=== PATIENT | female | born 1970 | race African-American/Black ===

== ENCOUNTER 2021-02-22 11:57 | Emergency (ER) | payer OTHER ==
[2021-02-22] MEDS ORDERED: PREDNISONE20 M1 PO (13:07)
[2021-02-22] MEDS ORDERED: CYCLOBENZAPRINE10 MG PO (13:07)
== END 2021-02-22 14:05 | disposition home or self-care (01) ==
LOC: ED 11:57
DX: G89.29 Other chronic pain (principal); Z88.6 Allergy status to analgesic agent; Z88.8 Allergy status to other drugs, medicaments and biological substances